=== PATIENT | male | born 1955 | race Caucasian/White ===

== ENCOUNTER 2021-11-14 03:53 | Emergency (ER) | payer OTHER ==
[~2021-11-14] VITALS: Ht 167.6 cm; Wt 77.1 kg
--- NOTE | 2021-11-14 03:57 | NUR ---
PT [facility] BED 12
[2021-11-14 03:58] VITALS: BP 165/71
--- NOTE | 2021-11-14 03:58 | NUR ---
Patient BIB by ALS from home. C/O Low blood sugar x today. Per report, patient's family found patient unresponsive, called 911, BS 25, Given 2 mg of Glucagon IM and Nasal, 1/2 tube of glocose PO, BS 35. PMHx: DM, HTN, HLD, Heart problems, triple bypass
--- NOTE | 2021-11-14 04:05 | NUR ---
1 AMP D50 GIVEN
--- NOTE | 2021-11-14 04:05 | NUR ---
Dr. Villa examining patient.
[2021-11-14] MEDS ORDERED: DEXTROSE 50% 50 ML SYR IVP ONE (04:06)
--- NOTE | 2021-11-14 04:27 | NUR ---
: JACOB SANFORD [phone]
--- NOTE | 2021-11-14 05:30 | NUR ---
REPORT RECIEVED FROM SHAI FRIAS.
--- NOTE | 2021-11-14 06:23 | NUR ---
BLOOD DRAWN AND SENT TO LAB
[2021-11-14 07:06] LABS: BASOPHILS # (AUTO) 0.1 K/uL (0.00-0.22); BASOPHILS % (AUTO) 0.5 % (0.0-2.0); EOSINOPHILS % (AUTO) 0.2 % (0.0-4.0); HEMATOCRIT 35.8 % (36-52); HEMOGLOBIN 11.7 g/dL (12.0-18.0); LYMPHOCYTES # (AUTO) 1.3 K/uL (2.0-11.5); LYMPHOCYTES % (AUTO) 11.9 % (20.5-51.1); MEAN CORPUSCULAR HEMOGLOBIN 26 pg (27-31); MEAN CORPUSCULAR HGB CONC 33 g/dL (33-37); MEAN CORPUSCULAR VOLUME 78.6 fL (80-94); MONOCYTES # (AUTO) 0.3 K/uL (0.8-1.0); MONOCYTES % (AUTO) 3.2 % (1.7-9.3); NEUTROPHILS # (AUTO) 8.9 K/uL (1.8-7.7); NEUTROPHILS % (AUTO) 84.2 % (42.2-75.2); PLATELET COUNT (AUTO) 759 K/uL (140-450); RED BLOOD CELL COUNT(AUTO) 4.55 MIL/uL (4.20-6.10); RED CELL DISTRIBUTION WIDTH 15.5 % (11.6-13.7); WHITE BLOOD COUNT (AUTO) 10.6 K/uL (4.8-10.8)
--- NOTE | 2021-11-14 07:15 | NUR ---
Recieved report from EUGENIA Jones for transfer of care.
[2021-11-14 07:38] LABS: ACETAMINOPHEN < 0.5 ug/ml (10-30); SALICYLATE < 2.8 mg/dL (2.8-20.0)
[2021-11-14 07:54] LABS: ALBUMIN 3.7 g/dL (3.4-5.0); ASPARTATE AMINOTRANSFERASE 46 U/L (15-37); CARBON DIOXIDE 27.7 mmol/L (21-32); CHLORIDE 106 mmol/L (98-107); CREATININE 1.5 mg/dL (0.6-1.3); GFR ARICAN-AMERICAN 61 mL/min (>90); GLUCOSE 157 mg/dL (74-106); LIPASE 80 U/L (73-393); POTASSIUM 4.7 mmol/L (3.5-5.1); SODIUM SERUM 143 mmol/L (136-145); TOTAL BILIRUBIN 0.1 mg/dL (0.0-1.0); UREA NITROGEN, BLOOD 36 mg/dL (7-18)
[2021-11-14 08:23] LABS: APPEARANCE,URINE CLEAR (CLEAR); BILIRUBIN,URINE NEGATIVE (NEGATIVE); BLOOD, URINE TRACE-I (NEGATIVE); COLOR,URINE YELLOW (YELLOW); LEUKOCYTE ESTERASE ,URINE NEGATIVE (NEGATIVE); NITRITE, URINE NEGATIVE (NEGATIVE); PH,URINE 5.5 (5.0-9.0); UGLUCOSE 2+ (NEGATIVE)
--- NOTE | 2021-11-14 08:23 | NUR ---
Patient is laying in bed, respirations even and unlabored. Vital signs stable. Denies any pain or discomfort at this time.
[2021-11-14 08:33] LABS: BARBITURATE, URINE NEGATIVE ng/ml (NEG <=200)
[2021-11-14 08:34] LABS: BENZODIAZEPINE, URINE NEGATIVE ng/mL (NEG <=200); CANNABINOID, URINE NEGATIVE ng/mL (NEG <=50); COCAINE, URINE NEGATIVE ng/mL (NEG <=300); OPIATE, URINE NEGATIVE ng/mL (NEG <=2000); PHENCYCLIDINE SCREEN,URINE NEGATIVE ng/mL (NEG <=25)
[2021-11-14 08:44] LABS: RBC,URINE 0-5 /HPF (0-5); WBC,URINE 0-5 /HPF (0-5)
[2021-11-14 08:45] LABS: OTHER CASTS, URINE None Seen /LPF (None Seen)
--- NOTE | 2021-11-14 09:40 | NUR ---
Patient is alert and verbally responsive. Patient has needs met by staff. Vital signs stable.
--- NOTE | 2021-11-14 10:23 | NUR ---
Patient discharged with v/s stable. Written and verbal after care instructions given. Patient verbalized understanding. Ambulatory with steady gait. All questions addressed prior to discharge. Advised to follow up with PMD.
--- NOTE | 2021-11-14 10:24 | NUR ---
Chart checked and completed. The patient's care was reviewed and supervised by Hilda Odom RN.
[2021-11-14 10:31] VITALS: BP 144/68
--- NOTE | 2021-11-18 08:00 | NUR ---
LATE ENTRY- IV NORMAL SALINE DISCONTINUED AT 1023.
== END 2021-11-14 10:31 | disposition home or self-care (01) ==
LOC: MED 03:53
DX: E11.649 Type 2 diabetes mellitus with hypoglycemia without coma (principal); I10 Essential (primary) hypertension; I25.10 Atherosclerotic heart disease of native coronary artery without angina pectoris; E78.00 Pure hypercholesterolemia, unspecified; Z79.4 Long term (current) use of insulin; Z79.899 Other long term (current) drug therapy; Z98.890 Other specified postprocedural states; Z88.0 Allergy status to penicillin
CPT/HCPCS: 36415; 80053; 80305; 81001; 83605; 83690; 84484; 85025; 87040; 99283; G0480; G0482